=== PATIENT | female | born 1990 | race Caucasian/White ===

== ENCOUNTER 2025-01-18 11:27 | Emergency (ER) | payer OTHER, SELFPAY ==
[2025-01-18] VITALS (9 sets, daily range): BP systolic 98–141; BP diastolic 64–85; PULSE 79–105; RESP 16–20; TEMP 36.5–36.8; O2SAT 95–100; BMI 28.8
[2025-01-18 11:54] LABS: Microscopic, Urine URINE MICROSCOPIC (MICROSCOPIC)
[2025-01-18 12:07] LABS: Bilirubin,Urine Negative (Negative); Color,Urine YELLOW (Yellow); Glucose,Urine (UA) Negative (Negative); Ketones,Urine Negative (Negative); Leukocyte Esterase,Urine Negative (Negative); PH,Urine 7.0 (5.0-8.5); Protein,Urine 1+ (Negative); Specific Gravity, Urine 1.020 (1.005-1.030); Urobilinogen,Urine 1.0 EU/dl (0.2)
[2025-01-18 12:08] LABS: Urine Pregnancy, HCG Qual. Negative (Negative)
--- NOTE | 2025-01-18 12:09 | ECG_ITS ---
APPROVED REPORT Exam: Resting ECG HR:87 bpm ECG Measurements Heart Rate 87 AXES KS 150 P 51 QRSd 85 QRS 78 QT 372 T 59 QTc 416 Conclusion SINUS RHYTHM NORMAL ECG UNCONFIRMED REPORT Normal sinus rhythm. No ST elevation or depression. QTc normal 416 Electronically signed by : THOR MARCANO, 01/19/2025 07:01:56
--- NOTE | 2025-01-18 12:10 | HMH.EDGENADL ---
Discharge Plan Disposition Patient Disposition: Home, Self-Care Prescriptions Prescriptions: New dicyclomine 20 mg tablet 20 mg PO BID Qty: 30 0RF No Action venlafaxine 75 mg Capsule,Extended Release 24hr 75 mg PO HS levetiracetam 500 mg Tablet 500 mg PO BID mirtazapine 15 mg Tablet 15 mg PO HS prazosin 2 mg Capsule 2 mg PO HS Referrals Follow up/Referrals: Provider,Elena, [Primary Care Provider, Medical] - See instructions Grant Del Toro MD [Staff Physician, General Surgery] - See instructions Activity Restrictions/Add. Instructions Additional Instructions/Restrictions: You were found to have gallstones within your gallbladder but no inflammation of the gallbladder itself. You are also found to have inflammation of the colon, likely related to your recent procedure. I given you referral to our general surgeon, Dr. Del Toro, for you to call on Monday to schedule an appointment. If you would prefer to see the surgeons at [facility] on Monday as discussed, you can do that instead. If you develop any new or worsening symptoms, such as uncontrollable pain, fever, uncontrollable nausea and vomiting, or if you become concerned for your help for any reason, return to the emergency department for evaluation. I am prescribing Bentyl to help with abdominal cramping. You can take Tylenol and ibuprofen every 6 hours as needed help with symptoms. Continue to take your Zofran as prescribed. Avoid fatty and greasy foods as this will likely make your gallbladder pain worse. Clinical Impressions Clinical Impression: Cholelithiasis, Colitis Instructions Patient Instructions: DI for Acute Abdominal Pain Print Language Print Language: Occitan Discharge ED Provider: Michael Bird General Adult [facility] General Chief complaint: Abdominal Pain Stated complaint: abdominal pain- gallbladder issues Time Seen by Provider: 01/18/25 11:50 Mode of Arrival: Ambulatory Source of Information: Patient and Spouse Description of Symptoms (Recalled from ER Triage Doc. by RN): patient presents to the ED for wrosening abodminal pain after a recemnt hospital stay at [facility]. she was discharged form there 01/06/25 and had an ERCP for gallstone removal that was obstructing hte bile duct. she is to see a surgeon for potential gallbladder removal this coming Monday but she states her pain is worsening. History of Present Illness HPI narrative: Manasa Christina is a 34y female with a history of recent ERCP on January 06 at [facility] who presents to the emergency department for concern for right upper quadrant pain, nausea, vomiting and diarrhea. Patient states that she started having right upper quadrant pain that is worsened approximately 20 minutes after eating. She was seen at [facility] and told that she had gallstones in her duct and underwent what she describes as an ERCP to remove the stones and was told that she would have to have her gallbladder removed in the future. This procedure occurred on the third she was discharged the same day. Over the last several days, she has had worsening right upper quadrant pain, nausea, bilious vomiting, and diarrhea. She states that her urine is dark. She is concerned that her gallbladder is causing issues. She denies any fevers. Patient denies any IV drug use. She notes a history of hepatitis C. She does state that alcohol yesterday and snorted cocaine 3 days ago Related Data Home Medications ?Medication ?Instructions ?Recorded ?Confirmed levetiracetam 500 mg tablet 500 mg PO BID 01/18/25 01/18/25 mirtazapine 15 mg tablet 15 mg PO HS 01/18/25 01/18/25 prazosin 2 mg capsule 2 mg PO HS 01/18/25 01/18/25 venlafaxine 75 mg capsule,extended 75 mg PO HS 01/18/25 01/18/25 release 24 hr Previous Rx's ?Medication ?Instructions ?Recorded dicyclomine 20 mg tablet 20 mg PO BID #30 tabs 01/18/25 Allergies Allergy/AdvReac Type Severity Reaction Status Date / Time acetaminophen (From Allergy Hives Verified 01/18/25 11:40 Tylenol-Codeine #3) codeine Allergy Hives Verified 01/18/25 11:40 tramadol Allergy Hives Verified 01/18/25 11:[address] [facility] Disclaimer: The information contained in this section may have been updated after the patient was seen, as this information can be updated by other users. Social History Smoking Status: Current every day smoker alcohol intake: current current occupational status: other Travel in the last 8 weeks?: None ROS Obtained: Yes Systems reviewed as appropriate & no additional complaints except as documented Physical Exam General General appearance: alert Comment: Appears uncomfortable Head Head exam: atraumatic Eye Eye exam: Present normal appearance ENT ENT exam: Present normal external ear exam Neck Neck exam: Present full ROM Chest Chest inspection: Present symmetric chest wall rise Respiratory Respiratory exam: Present normal lung sounds bilaterally; Absent respiratory distress Cardiovascular Cardiovascular exam: Present regular rate and normal rhythm Abdominal Exam Abdominal exam: Present soft, distention, tenderness (Right upper quadrant) and guarding (Right upper quadrant); Absent rigidity Extremities Exam Extremities exam: Present normal inspection Back Exam Back exam: Present normal inspection Neurological Exam Neurological exam: Present alert and oriented X3 Psychiatric Psychiatric exam: Present normal affect Skin Skin exam: Present warm and dry Medical Decision Making Medical Records Screening: Per USPSTF and CDC recommendations, given the prevalence of disease in our region, it is our hospital?s policy to screen for HIV and viral Hepatitis for all patients aged 18 and over and those with ongoing risk factors. Marbin Inquiry Pt receiving controlled substance: No Vital Signs: 01/18/25 11:32 01/18/25 11:44 01/18/25 12:35 Temperature 97.7 F Temperature Source Oral Oral Pulse Rate 99 H Pulse Rate [Right Radial] 105 H Respiratory Rate 18 Blood Pressure 130/85 Blood Pressure [Right Arm] 136/79 Blood Pressure Mean Blood Pressure Mean [Right Arm] 98 Blood Pressure Source Blood Pressure Source [Right Arm] Automatic Cuff Blood Pressure Position Blood Pressure Position [Right Arm] Sitting 02 Sat by Pulse Oximetry 100 96 Oxygen Delivery Method Room Air Room Air 01/18/25 13:00 01/18/25 13:30 01/18/25 14:00 Temperature Temperature Source Pulse Rate 83 82 79 Pulse Rate [Right Radial] Respiratory Rate 18 18 18 Blood Pressure 112/66 107/69 L 108/64 L Blood Pressure [Right Arm] Blood Pressure Mean 81 78 73 Blood Pressure Mean [Right Arm] Blood Pressure Source Blood Pressure Source [Right Arm] Blood Pressure Position Blood Pressure Position [Right Arm] 02 Sat by Pulse Oximetry 95 97 96 Oxygen Delivery Method 01/18/25 14:30 01/18/25 14:34 01/18/25 14:35 Temperature 97.7 F 98.2 F Temperature Source Oral Pulse Rate 88 88 80 Pulse Rate [Right Radial] Respiratory Rate 18 16 20 Blood Pressure 98/73 L 98/73 L 141/79 H Blood Pressure [Right Arm] Blood Pressure Mean 80 Blood Pressure Mean [Right Arm] Blood Pressure Source Automatic Cuff Blood Pressure Source [Right Arm] Blood Pressure Position Sitting Blood Pressure Position [Right Arm] 02 Sat by Pulse Oximetry 97 Oxygen Delivery Method Room Air Room Air Lab Data Lab Results 01/18/25 11:40: Urine Color Yellow, Urine Appearance Sl cloudy, Urine pH 7.0, Ur Specific [place] 1.020, Urine Protein 1+ A, Urine Glucose (UA) Negative, Urine Ketones Negative, Urine Blood Negative, Urine Nitrate Negative, Urine Bilirubin Negative, Urine Urobilinogen 1.0, Ur Leukocyte Esterase Negative, Urine RBC Occasional, Urine WBC Occasional, Ur Squamous Epith Cells 5-10, Urine Bacteria 1+, Urine HCG, Qual Negative 01/18/25 12:32: WBC 9.5, RBC 4.22, Hgb 13.6, Hct 40.3, MCV 95.5, MCH 32.2 H, MCHC 33.7, RDW 12.7, Plt Count 282, MPV 8.8, Neut % (Auto) 67.0, Lymph % (Auto) 23.7, [place] % (Auto) 7.0, Eos % (Auto) 1.5, Baso % (Auto) 0.5, Neut # (Auto) 6.4, Lymph # (Auto) 2.3, [place] # (Auto) 0.7, Eos # (Auto) 0.1, Baso # (Auto) 0.1, Sodium 133 L, Potassium 4.1, Chloride 100, Carbon Dioxide 26, Anion Gap 11.1, BUN 13, Creatinine 0.80, Estimated Creat Clear 122, Estimated GFR 82, Est GFR ( Amer) 99, Glucose 113 H, Lactate 1.3, Calcium 9.1, Total Bilirubin 0.7, AST 136 H, ALT 191 H, Alkaline Phosphatase 61, Troponin I < 0.01, Total Protein 8.2, Albumin 4.7, Globulin 3.5 H, Albumin/Globulin Ratio 1.3, Lipase 45, Serum HCG, Qual Negative 01/18/25 12:50: PT 11.4, INR 1.03, APTT 24.1 01/18/25 12:32 01/18/25 12:32 Orders (Tests/Meds): ED MEDICATIONS Discontinued Medications Generic Name Dose Route Start Last Admin Trade Name Freq PRN Reason Stop Dose Admin Iopamidol 75 ml 01/18/25 13:19 01/18/25 13:20 Iopamidol-370 (76%);100ml Bottle IV 01/18/25 13:20 75 ml ONCE ONE Administration Morphine Sulfate 4 mg 01/18/25 12:09 01/18/25 12:39 Morphine 4mg/Ml Syringe IV 01/18/25 12:10 4 mg ONCE ONE Administration Ondansetron HCl 4 mg 01/18/25 12:09 01/18/25 12:38 Ondansetron 4mg/2ml Vial IV 01/18/25 12:10 4 mg ONCE ONE Administration Sodium Chloride 10 ml 01/18/25 13:19 01/18/25 13:20 Sodium Chloride 0.9% 10ml Syr (Rad Only) IV 01/18/25 13:20 10 ml ONCE ONE Administration ORDERS Category Date Time Status CT abdomen pelvis w con Stat Cat Scan 01/18/25 12:13 Completed CBC w/Auto Diff [Complete Blood Count Auto Diff] Stat Lab 01/18/25 12:32 Completed CMP [Comprehensive Metabolic Panel] Stat Lab 01/18/25 12:32 Completed Lactic Acid Stat Lab 01/18/25 12:32 Completed Lipase Stat Lab 01/18/25 12:32 Completed PT INR [Prothrombin Time INR] Stat Lab 01/18/25 12:50 Completed PTT [Activated Partial Thrombo Time] Stat Lab 01/18/25 12:50 Completed Serum [HCG Qualitative, Serum] Stat Lab 01/18/25 12:32 Completed Trop I [Troponin I] Stat Lab 01/18/25 12:32 Completed Urinalysis and Microscopic Stat Lab 01/18/25 11:40 Completed Urine , HCG Qual. Stat Lab 01/18/25 11:40 Completed Medical Decision Narrative: Manasa Christina is a 34y female with a history of recent ERCP on January 06 at [facility] who presents to the emergency department for concern for right upper quadrant pain, nausea, vomiting and diarrhea. Patient states that she started having right upper quadrant pain that is worsened approximately 20 minutes after eating. She was seen at [facility] and told that she had gallstones in her duct and underwent what she describes as an ERCP to remove the stones and was told that she would have to have her gallbladder removed in the future. This procedure occurred on the third she was discharged the same day. Over the last several days, she has had worsening right upper quadrant pain, nausea, bilious vomiting, and diarrhea. She states that her urine is dark. She is concerned that her gallbladder is causing issues. She denies any fevers. Patient denies any IV drug use. She notes a history of hepatitis C. She does state that alcohol yesterday and snorted cocaine 3 days ago. On arrival, patient is normotensive, borderline tachycardic, afebrile, in no acute respiratory distress. Physical exam, as stated above, reveals an uncomfortable but non-toxic appearing female in no respriatory distress. She has tenderness with mild guarding in the RUQ without peritonitis or rigidity. Abdomen appears mildly distended. Cardiopulmonary exam is unremarkable. Differential diagnosis includes, but is not limited to: acute cholecystitis, choledocolithiasis, symptomatic cholelithiasis, post ERCP pancreatitis, gastritis, appendicits, among others. The most morbid conditions were considered and workup was based on these. Workup in the emergency department included: CBC with differential, coagulation studies, CMP, lactic acid, troponin, EKG, lipase, serum test, urinalysis, CT abdomen pelvis with IV contrast. I did attempt to visualize patient's gallbladder via bedside ultrasound, however she stated that she ate just prior to coming to the emergency department and I was not able to reliably locate the gallbladder due to it being significantly contracted. Patient was treated with 4 mg of IV morphine and 4 mg of IV Zofran. Laboratory workup shows no leukocytosis, no anemia, platelets within normal limits, coagulation studies within normal limits. Mild hyponatremia with sodium of 133, electrolytes otherwise within normal limits. No PAWAN. Glucose normal at 113, mildly elevated AST of 136 and ALT of 191, likely secondary to her chronic hepatitis C but bilirubin within normal limits and alk phos within normal limits. Initial troponin less than 0.01. Negative pricey test. Lipase normal at 45. Urinalysis with 1+ protein but no evidence of infection. CT imaging was interpreted by me personally. She has cholelithiasis without evidence of acute cholecystitis. No evidence of biliary obstruction. She has some thickening of the descending sigmoid colon, likely representing colitis. Per radiology,'s likely could be secondary to her recent ERCP. She does have diffuse hepatic steatosis. On reassessment, patient remains in stable condition. She has had some improvement in her pain with morphine. She states that she has Zofran at home prescribed to her previously. I do feel that patient's symptoms is a mixed picture of her colitis in the setting of cholelithiasis. I do feel that she needs to have her gallbladder removed, however does not need to be on an emergent basis. She states that she has a follow-up with her surgeon at [facility] on Monday. She would like a referral to our surgery team here as well but does plan on attending this appointment with her surgeon at [facility]. Instructed patient to avoid getting fatty/greasy foods as this could provoke her pain even more. Encouraged her to take anti-inflammatory such as ibuprofen, to help with her colitis as well as Tylenol. Will prescribe Bentyl for abdominal cramps as well. Patient was given strict return precautions. All questions were answered. She was in agreement for discharge at this time with plan as stated above. She was then discharged from the emergency department in stable condition. Procedures Limited Ultrasound Indication:: Indication:: Ultrasound-guided line placement Indication: - Difficult IV access, numerous unsuccessful pokes Identified structures: - Location/access site: - Vessel patency: - Patent Direct visualization? - Yes Impression: Successful [ ]g catheter in left upper extremity cephalic vein Images were not saved to permanent archive The study was technically adequate Critical Care Critical Care Time Critical Care Time: No
--- NOTE | 2025-01-18 12:13 | CT_ITS ---
PROCEDURE INFORMATION: Exam: CT Abdomen And Pelvis With Contrast Exam date and time: 01/18/2025 1:19 PM Age: 34 years old Clinical indication: Abdominal pain; Additional info: Ruq pain, recent ercp, acute cholecystitis? TECHNIQUE: Imaging protocol: Computed tomography of the abdomen and pelvis with contrast. Radiation optimization: All CT scans at this facility use at least one of these dose optimization techniques: automated exposure control; mA and/or kV adjustment per patient size (includes targeted exams where dose is matched to clinical indication); or iterative reconstruction. Contrast material: ISOVUE; Contrast volume: 75 ml; Contrast route: IV; COMPARISON: No relevant prior studies available. FINDINGS: Liver: The liver is low in density. Gallbladder and biliary ducts: Multiple dependent stones are seen in the gallbladder the no evidence of wall thickening or pericholecystic fluid. Pancreas: Normal. No ductal dilation. Spleen: Normal. No splenomegaly. Adrenal glands: Normal. No mass. Kidneys and ureters: Normal. No hydronephrosis. Stomach and bowel: The colon is mostly devoid of stool and there is borderline wall thickening of the descending and sigmoid colon. The small bowel is decompressed. Appendix: No evidence of appendicitis. Intraperitoneal space: Unremarkable. No free air. No significant fluid collection. Vasculature: Unremarkable. No abdominal aortic aneurysm. Lymph nodes: Unremarkable. No enlarged lymph nodes. Urinary bladder: Unremarkable as visualized. Reproductive: Unremarkable as visualized. Bones/joints: Unremarkable. No acute fracture. Soft tissues: Unremarkable. IMPRESSION: 1. The colon is mostly devoid of stool and there is borderline wall thickening of the descending and sigmoid colon. This may be the sequela of prep prior to ERCP however correlate with clinical signs and symptoms for enteritis or mild colitis. 2. Cholelithiasis without acute cholecystitis. No evidence of biliary obstruction. 3. Diffuse hepatic steatosis.
[2025-01-18 12:25] LABS: Bacteria,Urine 1+ /lpf; RBC,Urine Occasional #/hpf (0-3); WBC,Urine Occasional #/hpf (0-3)
[2025-01-18] MEDS: ONDANSETRON 4MG/2ML VIAL 4 MG IV (12:38)
[2025-01-18] MEDS: MORPHINE 4MG/ML SYRINGE 4 MG IV (12:39)
[2025-01-18 12:41] LABS: Hematocrit 40.3 % (37.0-47.0); Hemoglobin 13.6 g/dL (12.2-16.2); Immature Granulocytes % 0.3 %; Mean Corpuscular HGB Conc 33.7 g/dL (31.8-35.4); Mean Corpuscular Hemoglobin 32.2 pg (27.0-31.2); Mean Corpuscular Volume 95.5 fl (81-99); Nucleated Red Blood Cells % 0 %; Platelet Count 282 K/mm3 (142-424); Red Blood Count 4.22 M/mm3 (4.20-5.40); Red Cell Distribution Width-SD 44.1 fL; White Blood Count 9.5 K/mm3 (4.8-10.8)
[2025-01-18 13:08] LABS: HCG Qualitative, Serum Negative (Negative)
[2025-01-18 13:09] LABS: Alanine Aminotransferase 191 U/L (12-78); Albumin Level 4.7 g/dl (3.5-5.0); Albumin/Globulin Ratio 1.3 (1.1-1.8); Alkaline Phosphatase 61 U/L (38-126); Anion Gap 11.1 mEq/L (5-15); Aspartate Amino Transferase 136 U/L (14-36); Bilirubin,Total 0.7 mg/dl (0.2-1.3); Blood Urea Nitrogen 13 mg/dl (7-17); Calcium 9.1 mg/dl (8.4-10.2); Carbon Dioxide 26 mmol/L (22.0-30.0); Chloride 100 mmol/L (98-107); Creatinine Clearance Estimated 122 mL/min (50-200); Creatinine,Serum 0.80 mg/dl (0.52-1.04); Estimated Glomerular Filt Rate 82 ml/min (>60); GFR (African American) 99 ML/MIN (>60); Globulin 3.5 g/dL (1.3-3.2); Glucose 113 mg/dl (74-100); Lipase 45 U/L (23-300); Potassium 4.1 mmoL/L (3.5-5.1); Sodium 133 mmol/L (136-145); Total Protein,Serum 8.2 g/dl (6.3-8.2)
[2025-01-18 13:20] LABS: Activated Partial Thrombo Time 24.1 seconds (22.8-30.6); INR 1.03 (0.9-1.1); Prothrombin Time 11.4 seconds (10.1-12.5)
[2025-01-18] MEDS: IOPAMIDOL-370 (76%);100ML BOTTLE 75 ML IV (13:20)
[2025-01-18] MEDS: SODIUM CHLORIDE 0.9% 10ML SYR (RAD ONLY) 10 ML IV (13:20)
[2025-01-18 13:22] LABS: Troponin I < 0.01 ng/ml (0.00-0.034)
== END 2025-01-18 14:37 | disposition home or self-care (01) ==
PROVIDERS: Emergency Provider Student in an Organized Health Care Education/Training Program
DX: R10.11 Right upper quadrant pain (principal); K80.20 Calculus of gallbladder without cholecystitis without obstruction; K52.9 Noninfective gastroenteritis and colitis, unspecified
CPT/HCPCS: 74177; 80053; 81001; 81025; 83605; 83690; 84484; 84703; 85025; 85610; 85730; 93005; 96374; 96375; 99285; J2270; J2405; Q9967